=== PATIENT | female | born 1990 | race Caucasian/White ===

== ENCOUNTER → 2017-08-09 | Outpatient (CLI) | payer BC ==
[~2017-08-09] MED LIST: GOOD NEIGH1200 MG/15 PO; MOTRIN 600600 MG/TAB PO; PERCOCET 325 MG1 TA2 PO; PRENATAL MVI; SENOKOT S 50 MG1 TAB PO
== END ==
LOC: LAC 10:09
DX: Z39.1 Encounter for care and examination of lactating mother (principal); Z71.89 Other specified counseling

== ENCOUNTER 2020-05-31 06:34 | Inpatient (IN) | payer OTHER ==
[2020-05-31] VITALS (21 sets, daily range): BP systolic 112–151; BP diastolic 59–92; PULSE 60–90; TEMP 98–98.6
[~2020-05-31] VITALS: Ht 170.2 cm; Wt 96.8 kg
--- NOTE | 2020-05-31 06:43 | NUR ---
Pt arrives on unit ambulatory with spouse. States ctx since 0500. Denies vaginal bleeding, LOF, and reports GFM. Changed into a clean gown. EFM and toco applied. VSS. SVE per this RN 4-5/-2 BOWI. Admission assessment completed. Dr. Butler notified. Orders for admission, ok for epidural. IV started. Labs drawn. Consents signed. Pt oriented to room. No questions or concerns at this time.
[2020-05-31 07:08] LABS: BASO % 0.3 % (0.0-2.0); EOS # 0.1 (0.0-0.7); EOS % 0.9 % (0-4.0); GRAN # 8.5 (1.4-6.5); GRAN % 78.9 % (42.2-75.2); HEMATOCRIT 42.8 % (37.0-47.0); HEMOGLOBIN 14.5 g/dl (12.5-16.0); LYMPH # 1.6 (1.2-3.4); LYMPH % 14.6 % (20.0-51.0); MEAN CELL VOLUME 87 fl (80.0-100.0); MEAN CORPUSCULAR HEMOGLOBIN 30 pg (27.0-31.0); MEAN CORPUSCULAR HGB CONC 34 g/dl (33.0-37.0); MONO # 0.5 (0.1-0.6); MONO % 4.6 % (1.7-9.3); PLATELET COUNT 211 K/mm3 (130-400); RED BLOOD COUNT 4.92 M/mm3 (4.10-5.30); REDCELL DISTRIBUTION WIDTH-CV 12.6 % (11.5-14.5)
--- NOTE | 2020-05-31 07:26 | NUR ---
Pt sitting upright for epidural placement. Difficulty tracing FHR due to maternal position. RN at bedside adjusting monitors. FHR audible. See anesthesia record for epidural placement/documentation. CSF noted with insertion with Amaris Carty CRNA. Discussed potential for spinal headache and interventions. Pt verbalizes understanding. No questions or concerns at this time. Marin catheter placed, pt repositioned MOISÉS MARR. Fluid bolus infusing with late decelerations after anesthesia.
--- NOTE | 2020-05-31 09:00 | NUR ---
ROLES IN AT 0856. SVE /1. AROM AT 0857 WITH CLEAR FLUID.
--- NOTE | 2020-05-31 10:00 | NUR ---
PT WITH COMPLETE CERVICAL DILATION AT 0954. PUSHING STARTED AT [address] PURI TO COME FOR DELIVERY AT 0954. HERE AT 0958.
--- NOTE | 2020-05-31 10:08 | NUR ---
DR PURI AT BEDSIDE FOR DELIVERY. OF MALE INFANT AT 1005. SPONTANEOUS DELIVERY OF PLACENTA AT 1008. PITOCIN STARTED AT 333ML/HR AFTER DELIVERY OF PLACENTA. FUNDUS FIRMS WITH MASSAGE. DR AT BEDSIDE REPAIRING SECOND DEGREE LACERATION. STRAIGHT CATHETERIZED BY DR PURI AFTER DELIVERY OF PLACENTA WITH 100CC CLEAR YELLOW URINE RETURNED.
--- NOTE | 2020-05-31 10:10 | NUR ---
DR ROLES AT BEDSIDE REPAIRING PERINEUM.
[2020-06-01 00:15] VITALS: BP 115/55; PULSE 66; TEMP 98
[2020-06-01 04:30] VITALS: BP 128/67; PULSE 77; TEMP 98
[2020-06-01 07:25] VITALS: BP 119/66; PULSE 77; TEMP 98.6
[2020-06-01 20:05] VITALS: BP 122/61; PULSE 79; TEMP 98.8
--- NOTE | 2020-06-02 06:32 | NUR ---
REPORT RECEIVED FROM OFF GOING RN, MARIANA Sim. CARE TAKEN OVER BY THIS RN.
[2020-06-02 07:47] VITALS: BP 128/69; PULSE 72; TEMP 98.9
[2020-06-02] MEDS ORDERED: IBU600 MG PO (08:40)
== END 2020-06-02 17:06 | disposition home or self-care (01) | DRG 807 ==
LOC: LDRO 06:34 → LDR 06:45 → OB 06:45
PROVIDERS: ADMIT Obstetrics & Gynecology
PROC: 10E0XZZ Delivery of Products of Conception, External Approach (ICD-10-PCS; principal; 2020-05-31)
PROC: 0KQM0ZZ Repair Perineum Muscle, Open Approach (ICD-10-PCS; 2020-05-31)
PROC: 10907ZC Drainage of Amniotic Fluid, Therapeutic from Products of Conception, Via Natural or Artificial Opening (ICD-10-PCS; 2020-05-31)
PROC: 3E033VJ Introduction of Other Hormone into Peripheral Vein, Percutaneous Approach (ICD-10-PCS; 2020-05-31)
DX: O70.1 Second degree perineal laceration during delivery (principal); Z37.0 Single live birth; O89.4 Spinal and epidural anesthesia-induced headache during the puerperium; Z3A.38 38 weeks gestation of pregnancy
CPT/HCPCS: J0461; J2590; J2710; J7120

== ENCOUNTER 2023-05-02 09:00 | Day surgery (SDC) | payer OTHER ==
[~2023-05-02] VITALS: Ht 170.2 cm; Wt 72.2 kg
[~2023-05-02 09:00] MED LIST changes: +IBU600 MG PO; +LR 1,000 ML IV SCH; +MOTRIN 800800 MG/TAB PO
[2023-05-02 09:42] VITALS: BP 132/65; PULSE 86; TEMP 97.9
[2023-05-02] MEDS ORDERED: SLOW FE137 M1 PO (09:48)
[2023-05-02] MEDS ORDERED: fentaNYL 50 MCG/ML 2 ML VIAL ONE (10:48)
[2023-05-02] MEDS ORDERED: Lidocaine PF 2% (20 MG/ML) 5 ML VIAL ONE (10:53)
[2023-05-02] MEDS ORDERED: Ketorolac 30 MG/ML VIAL ONE (12:14)
[2023-05-02] MEDS ORDERED: Ondansetron 4 MG/2 ML VIAL ONE (12:14)
[2023-05-02] MEDS ORDERED: Tranexamic Acid 1,000 MG/10 ML VIAL ONE (12:15)
[2023-05-02] MEDS ORDERED: NS 20 ML IV ONE (12:38)
[2023-05-02 12:44] VITALS: BP 110/64; PULSE 79; TEMP 97.9
--- NOTE | 2023-05-02 12:57 | NUR ---
1244: PATIENT TO BAY 6 VIA COT FROM OR. ALERT AND ORIENTED. REPORT RECEIVED FROM JOVI BECKMAN AND JACKSON TRAYLOR. VSS. BREATHING EVEN AND UNLABORED. NO BLOOD NOTED ON MESH PANTIES. PATIENT DENIES PAIN OR NAUSEA. ROLES IN TO SPEAK WITH PATIENT AND . REQUSTING WATER AT THIS TIME. WARM BLANKET PROVIDED. NO FURTHER NEEDS NOTED. RESTING IN COT. CALL LIGHT IN REACH. , NORTH, AT BEDSIDE.
[2023-05-02 12:59] VITALS: BP 103/68; PULSE 58
[2023-05-02] MEDS ORDERED: Ondansetron 4 MG/2 ML VIAL IV PRN ×2 (13:00→13:15)
[2023-05-02] MEDS ORDERED: Acetaminophen 500 MG TAB PO SCH (13:00)
--- NOTE | 2023-05-02 13:10 | NUR ---
1259: ALERT AND ORIENTED. VSS. BREATHING EVEN AND UNLABORED. PATIENT DENIES PAIN AND NAUSEA. TOLERATING WATER. DOES NOT WISH TO ADVANCE DIET AT THIS TIME. NO BLOOD OR DISCHARGE NOTED ON MESH PANTIES. ADDITIONAL WARM BLANKET PROVDIED. NO FURTHER NEEDS NOTED. RESTING IN COT. CALL LIGHT IN REACH. , NORTH, AT BEDSIDE.
[2023-05-02 13:14] VITALS: BP 108/62; PULSE 71
[2023-05-02] MEDS ORDERED: fentaNYL 50 MCG/ML 2 ML VIAL IV PRN (13:15)
[2023-05-02] MEDS ORDERED: droPERidol 2.5 MG/ML 2 ML VIAL IV PRN (13:15)
--- NOTE | 2023-05-02 13:25 | NUR ---
1314: PATIENT ALERT AND ORIENTED. VSS. BREATHING EVEN AND UNLABORED. NO BLOOD NOTED ON MESH PANTIES. PATIENT DENIES PAIN AND NAUSEA. REQUESTING MUFFIN AND CRACKERS AT THIS TIME. RESTING IN COT. CALL LIGHT IN REACH.
[2023-05-02 13:29] VITALS: BP 118/63; PULSE 73
[2023-05-02 13:44] VITALS: BP 114/60; PULSE 69
--- NOTE | 2023-05-02 13:45 | NUR ---
1329: ALERT AND ORIENTED. VSS. BREATHING EVEN AND UNLABORED. PATIENT TOLERATING MUFFIN, CRACKERS AND WATER WITH NO C/O PAIN OR NAUSEA. NO BLOOD NOTED ON MESH PANTIES. NO FURTHER NEEDS NOTED. RESTING IN COT. CALL LIGHT IN REACH. , NORTH, AT BEDSIDE.
--- NOTE | 2023-05-02 13:58 | NUR ---
1344: ALERT AND ORIENTED X4. VSS. BREATHING EVEN AND UNLABORED. CONTINUES TO TOLERATE FOOD AND WATER WITH NO C/O PAIN OR NAUSEA. PATIENT AMBULATED TO BATHROOM WITH STEADY GAIT AND STAND-BY ASSIST. PATIENT STATED SMALL AMOUNT OF BLOOD NOTED ON PAD. NO FURTHER NEEDS NOTED. RESTING IN COT. CALL LIGHT IN REACH. , NORTH, AT BEDSIDE.
--- NOTE | 2023-05-02 14:25 | NUR ---
1405: DISCHARGE EDUCATION COMPLETED AT THIS TIME. PATIENT STATES UNDERSTANDING OF HOME AND FOLLOW-UP CARE. DISCHARGE PAPERWORK GIVEN TO PATIENT. IV DC'D AT THIS TIME. PATIENT DENIES ANY ASSISTANCE DRESSING. 1415: PATIENT AMBULATED FROM COT TO WHEELCHAIR WITH STEADY GAIT. PATIENT DISCHARGED TO HOME WITH PER PERSONAL VEHICLE.
[2023-05-02] MEDS ORDERED: Ibuprofen 800 MG TAB PO SCH (18:51)
== END 2023-05-02 14:15 | disposition home or self-care (01) ==
LOC: SDCO 09:00
DX: O02.1 Missed abortion (principal); O36.8399 Maternal care for abnormalities of the fetal heart rate or rhythm, unspecified trimester, other fetus
CPT/HCPCS: J1885; J2405; J2704; J3010; J7120